=== PATIENT | male | born 1995 | race Caucasian/White ===

== ENCOUNTER 2017-02-27 11:25 | Emergency (ER) ==
[2017-02-27 11:34] VITALS: BP 141/80; TEMP 99.3; BMI 27.2
[2017-02-27] MEDS ORDERED: LIDOCAINE 1 % AMP 5 ML (SUTURES) SUBCUT STA (13:15)
--- NOTE | 2017-02-27 13:17 | ED.PDOC ---
General ED Provider: Dr. BRYSON GAGE JR Chief Complaint: Laceration Stated Complaint: left thumb laceration from barrel top at work now not bleeding - "It bled a lot". [place] his [place] --opening a 55 gallon drum--tried to pry metal top open--left thumb lac--approx 1/2 inch--bleeding controlled at present-- states had to apply pressure enroute to hosp. [ End ] Time Seen by Physician: 13:17 Mode of Arrival: Walk-In Information Source: Patient Exam Limitations: No limitations Primary Care Provider: TARA RAM Nursing and Triage Documentation Reviewed and Agree: No Review of Systems - Review Of Systems Constitutional: Reports: No symptoms Eyes: Reports: No symptoms Ears, Nose, Mouth, Throat: Reports: No symptoms Respiratory: Reports: No symptoms Cardiac: Reports: No symptoms GI: Reports: No symptoms : Reports: No symptoms Skin: Reports: Lesions (left thumbtip laceration linear) All Other Systems: Other Past Medical History - Past Medical History Previously Healthy: Yes Endocrine: Reports: None Cardiovascular: Reports: None Respiratory: Reports: None Hematological: Reports: None Gastrointestinal: Reports: None Genitourinary: Reports: None Neuro/Psych: Reports: None Musculoskeletal: Reports: None Cancer: Reports: None Other Pertinent Past Medical History: multil lacerations glass etc in past - Surgical History General Surgical History: Reports: None, Other (wisdom teeth removed) - Family History Family History: Reports: Unknown - Social History Smoking Status: Never smoker Hx Substance Use: No Alcohol Screening: Occasionally - Immunizations Tetanus Shot up to Date: (unsure) Physical Exam - Physical Exam Appearance: Well-appearing, No pain distress, Well-nourished Neck: Supple Respiratory: Airway patent Psychiatric: Affect appropriate Procedures - Laceration/Wound Repair No standard instances Wound Description: Linear Wound Length (cm): 2 Wound Explored: Clean Wound Irrigated: Yes Wound Prep: Hibiclens Anesthesia: Lidocaine Wound Repaired With: Sutures Suture Size and Type: 4-0 Number of Sutures: 7 Layer Closure?: No Critical Care Note - Critical Care Note Total Time (mins): 0 Course - Course Orders, Labs, Meds: Orders Category Date Time Status Splint [ED SPLINT APPLICATION] .ONCE EMERGENCY 02/27/17 13:48 Ordered Lidocaine HCl/Pf [Lidocaine 1 % Amp 5 ml (Sutures)] MEDS 02/27/17 13:15 Discontinued 5 ml SUBCUT ONCE STA Medications Discontinued Medications Generic Name Dose Route Start Last Admin Trade Name Seth PRN Reason Stop Dose Admin Lidocaine HCl 5 ml 02/27/17 13:15 Lidocaine 1 % Amp 5 Ml (Sutures) SUBCUT 02/27/17 13:16 ONCE STA Vital Signs: Temp Pulse Resp BP Pulse Ox 02/27/17 11:26 99.3 F 58 L 20 141/80 H 98 Departure - Departure Time of Disposition: 13:53 Disposition: HOME SELF-CARE Discharge Problem: Laceration - injury Instructions: Care For Your Stitches (ED), Laceration (ED) Condition: Good Pt referred to PMD for follow-up: Yes Additional Instructions: dry for three days then may cleanse with peroxide sutures out in 6-7 days Allergies/Adverse Reactions: Allergies No Known Allergies Allergy (Unverified 02/27/17 11:35) Home Medications: Ambulatory Orders 1 [No Reported Medications] 02/27/17
== END 2017-02-27 14:05 | disposition home or self-care (01) ==
LOC: ED 11:25
DX: S61.012A Laceration without foreign body of left thumb without damage to nail, initial encounter (principal); W45.8XXA Other foreign body or object entering through skin, initial encounter
CPT/HCPCS: 99282